=== PATIENT | female | born 1955 | race Caucasian/White ===

== ENCOUNTER 2022-06-14 04:33 | Day surgery (SDC) | payer OTHER, BC ==
[2022-06-09 12:51] VITALS: BMI 28.3
[2022-06-14] MEDS ORDERED: ACETAMINOPHEN 325 MG TABLET (FP) PO PRN (06:15)
[2022-06-14] MEDS ORDERED: IBUPROFEN 400 MG TABLET (FP) PO PRN (06:15)
[2022-06-14] MEDS ORDERED: MIDAZOLAM HCL 2 MG/2 ML SINGLE DOSE VIAL ONE (11:49)
[2022-06-14] MEDS ORDERED: oxyCODONE HCL 5 MG TABLET PO PRN ×2 (12:13)
[2022-06-14] MEDS ORDERED: ONDANSETRON 4 MG/2 ML VIAL IVPUSH PRN (12:13)
[2022-06-14] MEDS ORDERED: LACTATED RINGERS SOLUTION 1,000 ML IV SCH (12:15)
[2022-06-14 15:40] VITALS: RESP 18
[2022-06-14 15:46] VITALS: BP 161/76; PULSE 62; TEMP 97.9
== END 2022-06-14 14:40 | disposition home or self-care (01) ==
LOC: JASU-SURG 04:33
PROVIDERS: ATTEND Obstetrics & Gynecology
PROC: 0UDB8ZX Extraction of Endometrium, Via Natural or Artificial Opening Endoscopic, Diagnostic (ICD-10-PCS; 2022-06-14)
PROC: 0UB98ZZ Excision of Uterus, Via Natural or Artificial Opening Endoscopic (ICD-10-PCS; principal; 2022-06-14 12:00)
PROC: 0UB98ZX Excision of Uterus, Via Natural or Artificial Opening Endoscopic, Diagnostic (ICD-10-PCS; 2022-06-14 12:00)
DX: D25.0 Submucous leiomyoma of uterus (principal); N84.0 Polyp of corpus uteri; N92.4 Excessive bleeding in the premenopausal period
CPT/HCPCS: 88305-TC; 94760